=== PATIENT | male | born 1995 | race Caucasian/White ===

== ENCOUNTER → 2025-04-24 | Outpatient (CLI) | payer OTHER, SELFPAY ==
[2025-04-24 10:42] LABS: Basophils # (Auto) 0.1 Thou/mm3 (0.0-0.2); Basophils % (Auto) 1 % (0-2.5); Eosinophils # (Auto) 0.1 Thou/mm3 (0.0-0.5); Eosinophils % (Auto) 2 % (0-10); Hematocrit 41.5 % (41.0-53.0); Hemoglobin 13.7 g/dL (13.5-16.0); Immature Granulocytes Auto 0.01 Thou/mm3 (0.00-0.00); Lymphocytes # (Auto) 2.9 Thou/mm3 (1.0-4.8); Lymphocytes % (Auto) 47 % (10-50); Mean Corpuscular HGB Conc 33.0 g/dl (31.0-37.0); Mean Corpuscular Hemoglobin 25.1 pg (25.0-35.0); Mean Corpuscular Volume 76 fL (80-100); Monocytes # (Auto) 0.5 Thou/mm3 (0.0-0.8); Monocytes % (Auto) 8 % (0-12); Neutrophils # (Auto) 2.7 Thou/mm3 (1.8-7.7); Neutrophils % (Auto) 43 % (37-80); Nucleated Red Blood Cell # 0.00 Thou/mm3 (0.00-0.00); Nucleated Red Blood Cell % 0 /100 WBC (0); Platelet Count 268 Thou/mm3 (140-440); RDW Standard Deviation 39.4 fL (35.1-43.9); Red Blood Count 5.46 Miln/mm3 (4.50-5.90); White Blood Count 6.2 Thou/mm3 (3.8-10.6)
[2025-04-24 10:55] LABS: Vitamin D 25 Hydroxy Total 12.0 ng/mL (7.3-40.2)
[2025-04-24 11:15] LABS: Alanine Aminotransferase 17 U/L (10-49); Albumin, Serum 5.1 gm/dL (3.5-5.0); Albumin/Globulin Ratio 2.0 (1.2-2.2); Alkaline Phosphatase 68 U/L (46-116); Anion Gap 9 (7-16); Aspartate Amino Transferase 23 U/L (0-34); BUN/Creatinine Ratio 9 Ratio (12-20); Bilirubin,Total 0.6 mg/dL (0.3-1.2); Blood Urea Nitrogen 11 mg/dL (9-23); Calcium 9.7 mg/dL (8.3-10.6); Calcium (Corrected) 9.7 mg/dL (8.5-10.1); Carbon Dioxide 26.9 mMol/L (20.0-31.0); Chloride 104 mMol/L (98-107); Creatinine (Component) 1.2 mg/dL (0.6-1.3); Free T4 (Free Thyroxine) 1.24 ng/dL (0.89-1.76); Globulin 2.6 gm/dL (2.3-3.5); Glucose 84 mg/dL (74-106); Osmolality,Calculated 277 (275-295); Potassium 3.9 mMol/L (3.4-5.1); Sodium 140 mMol/L (136-145); Thyroid Stimulating Hormone 2.39 uIU/mL (0.55-4.78); Total Protein 7.7 gm/dL (5.7-8.2); eGFR > 60 See Note
[2025-04-24 12:33] LABS: Glucose Estimated Average 105 mg/dL (80-131); Hemoglobin A1C 5.3 % Hgb (4.8-6.0)
[2025-04-24 12:36] LABS: Cardiac Risk Estimate 3.6 RATIO (4.0-6.7); Cholesterol 210 mg/dL (132-200); HDL Cholesterol 58 mg/dL (40-60); LDL Cholesterol,Calculated 135 mg/dL (0-130); Triglycerides 83 mg/dL (30-150)
== END | disposition home or self-care (01) ==
LOC: CDIM 07:32 → COPL 09:29
PROVIDERS: PCP Pediatrics; Referring Provider Pediatrics; Visit Provider Pediatrics
DX: Z00.00 Encounter for general adult medical examination without abnormal findings (principal); E55.9 Vitamin D deficiency, unspecified
CPT/HCPCS: 36415; 80053; 80061; 82306; 83036; 84439; 84443; 85025

== ENCOUNTER → 2025-05-14 | Outpatient (CLI) | payer OTHER, SELFPAY ==
--- NOTE | 2025-05-14 08:10 | XR_ITS ---
Examination: Wrist, right 3 views Technique: Wrist AP, oblique, lateral 3 views Date and time of exam: May 14, 2025, 0817 hours INDICATIONS: Wrist pain several years. FINDINGS: Adequate bone density. No fracture or dislocation. No erosive or other significant arthritic change IMPRESSION: No erosive or other significant arthritic change
--- NOTE | 2025-05-14 08:10 | XR_ITS ---
Examination: Hand, right 3 views Technique: Hand AP, oblique, lateral 3 views Date and time of exam: May 14, 2025, 0819 hours INDICATIONS: Hand pain beginning several years ago FINDINGS: Adequate bone density No fracture No erosive or other significant arthritic change No foreign bodies IMPRESSION: No erosive or other significant arthritic change
== END | disposition home or self-care (01) ==
LOC: SDIM 07:46
PROVIDERS: PCP Internal Medicine
DX: M79.641 Pain in right hand (principal); M25.531 Pain in right wrist
CPT/HCPCS: 73110; 73130